=== PATIENT | female | born 1970 | race Caucasian/White ===

== ENCOUNTER 2016-11-25 09:50 | Emergency (ER) | payer OTHER ==
[~2016-11-25] VITALS: Ht 157.5 cm; Wt 59.0 kg
--- NOTE | ~2016-11-25 | EKG ---
PATIENT: JOE YANES UNIT #: [id number] Ventricular Rate: 73 BPM Atrial Rate: 73 BPM P-R Interval: 176 ms QRS Duration: 82 ms Q-T Interval: 374 ms QTC Calculation(Bezet): 412 ms P Mead: 64 degrees Calculated R Mead: 74 degrees Calculated T Mead: 41 degrees Diagnosis Line: Normal sinus rhythm Diagnosis Line: Normal ECG Diagnosis Line: No previous ECGs available Diagnosis Line: Confirmed by JOSEPH TRIPATHI MD ([id number]) on Diagnosis Line: 11/26/2016 5:04:08 PM INTERPRETING MD: DEUCE PRADO
[~2016-11-25 09:50] MED LIST: FIORICET 50-321 EACH PO; FOLIC ACID1 MG; KEPPRA XR500 MG; LEVOTHROID75 MCG; LYRICA; NAPROSYN500 MG PO; ONFI20 MG; VIMPAT150 MG; VITAMIN B; ZITHROMAX1 G/PKT PO
== END 2016-11-25 14:13 | disposition home or self-care (01) ==
LOC: CED 09:50
DX: T36.8X1A Poisoning by other systemic antibiotics, accidental (unintentional), initial encounter (principal); T42.4X1A Poisoning by benzodiazepines, accidental (unintentional), initial encounter; G40.909 Epilepsy, unspecified, not intractable, without status epilepticus; I95.9 Hypotension, unspecified; Z88.6 Allergy status to analgesic agent
CPT/HCPCS: 93005; 96360; 99284